=== PATIENT | female | born 1995 | race Caucasian/White ===

== ENCOUNTER 2018-05-19 23:58 | Inpatient (IN) ==
--- OUTSIDE RECORDS SUMMARY | 2018-05-20 00:02 | External Medical Summary | Continuity of Care Document ---
:1995 Author Organization [facility] Address [address] [place], [place] [address] Phone Allergies, Adverse Reactions, Alerts Substance Reaction Severity Status No Known Drug Allergies Unknown Active Medications Medication Instructions Dosage Effective Dates Status Comments (start - stop) 28 mg take 1 tablet by Not Available - Active iron-800 mcg oral route every tablet day Problems Condition Effective Dates (start - stop) Clinical Status Encntr for suprvsn of normal first - preg, third trimester Encounter For Screening For - Streptococcus B 36 weeks gestation of - Encntr screen for infections w sexl - mode of transmiss Encounter for screening for oth - infec/parastc diseases Encntr for suprvsn of normal first - preg, first trimester Encounter For Other Specified - Screening 10 weeks gestation of - 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) w/o abn findings Pap Smear Screening, Cervix Pap Smear Screening, Cervix Encounter for surveillance of contraceptive pills Encntr for suprvsn of normal first - preg, first trimester Encntr for suprvsn of normal first - preg, second trimester 19 weeks gestation of - Encntr for suprvsn of normal first - preg, second trimester 19 weeks gestation of - Encntr for suprvsn of normal first - preg, second trimester 24 weeks gestation of - Encntr for suprvsn of normal first - preg, second trimester 15 weeks gestation of - Encntr for suprvsn of normal first - preg, third trimester 35 weeks gestation of - Encntr for suprvsn of normal first - preg, third trimester 33 weeks gestation of - Encntr for suprvsn of normal first - preg, third trimester 38 weeks gestation of - Encntr for suprvsn of normal first - preg, third trimester 39 weeks gestation of - Encntr for suprvsn of normal first - preg, third trimester 37 weeks gestation of - Encntr for suprvsn of normal first - preg, third trimester 33 weeks gestation of - Encntr for suprvsn of normal first - preg, third trimester 28 weeks gestation of - Encntr for suprvsn of normal first - preg, third trimester 30 weeks gestation of - Migraines Active Procedures Procedure Date OB Visit No Charge Cult, pathgnc orgnsm, screen Results Test Name Date and Time Measure Units Reference Range Abnormal Flag Comments Panel Description: Strep Gp B Culture Strep Gp B Negative Negative Centers for Disease Control Culture 16:19:00 and Prevention (CDC) and [place] Congressof Obstetricians and Gynecologists (ACOG) guidelines for prevention ofperinatal group B streptococcal (GBS) disease specify co-collection ofa vaginal and rectal swab specimen to maximize sensitivity of GBSdetection. Per the CDC and ACOG, swabbing both the lower vagina andrectum substantially increases the yield of detection compared withsampling the vagina alone. .Penicillin G, ampicillin, or cefazolin are indicated for intrapartumprophylaxis of GBS colonization. Reflex susceptibilitytesting should be performed prior to use of clindamycin only on GBSisolates from penicillin-allergic women who are considered a high riskfor anaphylaxis. Treatment with vancomycin without additional testingis warranted if resistance to clindamycin is noted. Advance Directives Directive Yes / No Effective Date File Name Unknown Encounters Encounter Practice Location Reason(s) Diagnoses Date Provider Care Team Description For Visit Members Loretta Miner Encntr for Apr-1 Alfredo Referring In Womens suprvsn of normal 6-201 Natividad. Provider: Andre WADE, first preg, third 8 700 [address] [email or web address] weeks Medical [facility]sh, 700 1522, gestation of [facility], , [facility] [address] G[facility], 120, Memo 120, [id number], Kristofer Miner, [place]RE[place] GOMES, tel: [phone]. , [place]. tel: tel: [phone] Loretta Miner Encntr for Apr-0 Alfredo Referring In Womens suprvsn of normal 9-201 Natividad. Provider: Andre WADE, first preg, third 8 700 Krystal [address] Box [email or web address] weeks Medical Cash, 700 1522, gestation of [facility], , [facility] [address] GOMES, 120, Memo 120, , Kristofer Miner, [place]RE[place] GOMES, tel: [phone]. , [place]. tel: tel: [phone] Loretta Miner Encntr for Apr-0 Dietz Referring In Womens suprvsn of normal 2-201 Yvrose. Provider: Andre WADE, first preg, third 8 700 Krystal PO Box [email or web address] weeks Medical Cash, 700 1522, gestation of [facility], , [facility] [address] GOMES, 120, Memo 120, [id number], Kristofer Miner, [place]RE[place] GOMES, tel: [phone]. , [place]. tel: tel: [phone] Loretta Miner Encntr for Mar-2 Alfredo Referring In Womens suprvsn of normal 6-201 Natividad. Provider: Andre WADE, first preg, third 8 700 Krystal PO Box trimesterEncounte Medical Cash, 700 1522, r For [facility], Screening For , [facility] GOMES, Streptococcus B36 120, Memo 120, , weeks gestation Kristofer Miner, of [place], [place], tel: [phone]. , [place]. tel: tel: [phone] Loretta Miner Encntr for Fito-1 Alfredo Referring In Womens suprvsn of normal 9-201 Natividad. Provider: Health SHERI, first preg, third 8 700 Krystal PO Box [email or web address] weeks Medical Cash, 700 1522, gestation of [facility], , [facility] [address] [facility], 120, Memo 120, [id number], Kristofer Miner, [place]RE[place], [place], tel: [phone]. , [place]. tel: tel: [phone] Loretta Miner Encntr for Fito-0 Robert Referring In Womens suprvsn of normal 5-201 Filipe. 700 Provider: Andre WADE, first preg, third 8 Medical Krystal PO Box [facility], [facility], gestation of , [facility], 120, Upatoi Kristofer Vanegas, [facility] 120, , Kristofer GOMES, [id number] [place], tel: , [place]. [phone]. tel: tel: [phone] Loretta Miner Encntr for Fito-0 Alfredo Referring In Womens Ultrasound suprvsn of normal 5-201 Natividad. Provider: Health SHERI, first preg, third 8 700 Krystal PO Box weeks Medical Cash, 700 1522, gestation of [facility], , [facility] [address] [facility], 120, Memo 120, [id number], Kristofer Miner, MIREYA, [place], tel: [phone]. , [place]. tel: tel: [phone] Loretta Miner Encntr for Vinny-1 Alfredo Referring In Womens suprvsn of normal 4-201 Natividad. Provider: Health SHERI, first preg, third 8 700 Krystal PO Box [email or web address] weeks Medical Cash, 700 1522, gestation of [facility], , [facility] [address] [facility], 120, Memo 120, [id number], Kristofer Miner, [place], [place], tel: [phone]. , [place]. tel: tel: [phone] Loretta Miner Encntr for May-3 Alfredo Referring In Womens suprvsn of normal 1-201 Natividad. Provider: Andre WADE, first preg, third 8 700 [address] PO Box [email or web address] weeks Medical Cash, 700 1522, gestation of [facility], , [facility], 120, Memo 120, [id number], Kristofer Miner, [place], [place], tel: [phone]. , [place]. tel: tel: [phone] Loretta Miner Encntr for May-0 Alfredo Referring In Womens suprvsn of normal 3-201 Natividad. Provider: Andre WADE, first preg, 8 700 Krystal PO Box second Medical Cash, 700 1522, [email or web address] weeks [facility], gestation of , [facility] [address] [facility], 120, Memo 120, [id number], Kristofer Miner, [place], [place], tel: [phone]. , [place]. tel: tel: [phone] Loretta Miner Encntr for Mar-2 Alfredo Referring In Womens suprvsn of normal 9-201 Natividad. Provider: Andre WADE, first preg, 8 700 Krystal PO Box second Medical Cash, 700 1522, [email or web address] weeks [facility], gestation of , [facility] [address] [facility], 120, Memo 120, [id number], Kristofer Miner, [place], [place], tel: [phone]. , [place]. tel: tel: [phone] Loretta Miner Encntr for Mar-2 Alfredo Referring In Womens Ultrasound suprvsn of normal 9-201 Natividad. Provider: Andre WADE, first preg, 8 700 Krystal PO Box second Medical Cash, 700 1522, [email or web address] weeks [facility], gestation of , [facility], 120, Memo 120, , Kristofer Miner, [place]RE[place] GOMES, tel:[phone]. , [place]. tel: tel: [phone] Loretta Miner Encntr for Mar-0 Alfredo Referring In Womens suprvsn of normal 1-201 Natividad. Provider: Andre WADE, first preg, 8 700 Krystal PO Box second Medical Cash, 700 1522, [email or web address] weeks [facility], gestation of , [facility], 120, Memo 120, , Kristofer Miner, [place]RE[place] GOMES, tel:[phone]. , [place]. tel: tel: [phone] Loretta Knappntr for Pranav-2 Sobbing Referring In Womens suprvsn of normal 5-201 Aly. Provider: Andre WADE, first preg, first 8 700 Krystal PO Box trimester Medical Cash, 700 1522, [facility] [address] GOMES, [address], , Judy, Miner, MIREYA Miner, tel: MIREYA, [phone]. [id number], tel: [place]. [phone] tel: [phone] Loretta Miner Encntr screen for Pranav-2 Alfredo Referring In Womens infections w sexl 5-201 Natividad. Provider: Andre WADE, mode of 8 700 [address] PO Box transmissEncounte Medical Cash, 700 1522, r for screening [facility], for oth , [facility] [address] [facility], infec/parastc 120, Memo 120, , diseasesEncntr Kristofer Miner, for suprvsn of [place], [place], tel: normal first [phone]. preg, first , [place]. 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 Provider: Andre WADE, (routine) w/o abn 7 700 Krystal PO Box findingsPap Smear Medical Cash, 700 1522, Screening, [facility], CervixPap Smear , [facility] Dr GOMES, Screening, 120, Memo 120, [id number], CervixEncounter Kristofer Miner, for surveillance [place] GOMES, tel: of contraceptive [phone]. [id number] pills , [place]. tel: tel: [phone] Family History Family Member Diagnosis Age At Onset No family history of Uterine Cancer No family history of Breast Cancer No family history of Pulmonary Embolism Maternal Grandmother Multiple sclerosis No family history of Hypertension No family history of Colon Cancer No family history of Epilepsy No family history of Lung Disease No family history of Cardiovascular Disease No family history of Stroke Paternal Grandfather Sleep apnea No family history of Venous Thrombosis No family history of Thyroid Disorder No family history of Osteoporosis No family history of Ovarian Cancer No family history of Kidney Disease Paternal Grandfather Diabetes Immunizations Vaccine Date Status Comments Tdap completed Source: New Immunization Record Payers Payer name Insurance type Covered constitution party ID Authorization(s) [facility] [id number] [facility] [id number] Social History Type Description Quantity Date Captured Alcohol Use Details Caffeine Use Details Unknown Tobacco Use Status Unknown Smoking Status Never smoker Vital Signs Date / Height Weight BMI Pulse Blood Temperature Respiratory Body Head BMI Time: Rate Pressure Rate Surface Circumference percentile Area 152.10 21.7 lbs 0 mm[Hg] 3:16 kg/m PM eter (2) Chief Complaint And Reason For Visit Unknown Chief Complaint And Reason For Visit Reason For Referral Reason For Referral Unknown Plan Of Care Date Type Action Status Appointment Agatha Sánchez BOOKED Future Order: Radiology Order Complete OB Ultrasound > 14 Weeks Ordered ([id number]) Future Order: Radiology Order Ultrasound OB Follow-up ([id number]) Ordered Date Type Problem Goal Intervention Status Start Date Unknown. History Of Present Illness Encounter Date Complaint History Of Present Illness This patient has no known history of present illness Functional Status Encounter Date Functional Assessment Cognitive Assessment Unknown Medications Administered Medication Instructions Dosage Effective Dates (start - stop) Status Comments Drug Treatment Unknown Instructions Date Instruction Additional Information HIV and other routine tests risk factors identified by history anticipated course of care nutrition and weight gain counseling, special diet toxoplasmosis precautions (cats / raw meat) sexual activity exercise indications for ultrasound influenza vaccine environmental / work hazards travel use of any medications (including supplements, vitamins, herbs, OTC drugs) domestic violence seat belt use childbirth classes / hospital facilities hospital registration genetic testing new ob handbook
--- OUTSIDE RECORDS SUMMARY | 2018-05-20 00:02 | External Medical Summary | Continuity of Care Document ---
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 Provider: Andre WADE, first preg, third 8 700 K[address] PO Box [email or web address] weeks Medical Cash, 700 1522, gestation of [facility], , [facility] Dr GOMES, 120, Memo 120, [id number], Kristofer Miner, [place]RE[place] GOMES, tel: [phone]. [id number] , [place]. tel: tel: [phone] Loretta Miner Encntr for Alfredo Referring In Womens suprvsn of normal 9-201 Natividad. Provider: Ander WADE, first preg, third 8 700 [address] PO Box [email or web address] weeks Medical Cash, 700 1522, gestation of [facility], , [facility] Dr GOMES, 120, Memo 120, [id number], Kristofer Miner, [place]RE[place] GOMES, tel:[phone]. , [place]. tel: tel: [phone] Loretta Miner Encntr for Aug-0 Dietz Referring In Womens suprvsn of normal 2-201 Yvrose. Provider: Health PA, first preg, third 8 700 Krystal PO Box [email or web address] weeks Medical Cash, 700 1522, gestation of [facility], , [facility] Dr GOMES, 120, Memo 120, [id number], Kristofer Miner, [place]RE[place] GOMES, tel:[phone]. , [place]. tel: tel: [phone] Loretta Miner Encntr for Fito-2 Alfredo Referring In Womens suprvsn of normal 6-201 Natividad. Provider: Health SHERI, first preg, third 8 700 Krystal PO Box trimesterEncounte Medical Cash, 700 1522, r For [facility], Screening For Dr, [facility] Dr GOMES, Streptococcus B36 120, Memo 120, [id number], weeks gestation Kristofer Miner, [place] of [place] GOMES, tel: [phone]. , [place]. tel: tel: [phone] Loretta Miner Encntr for Fito-1 Alfredo Referring In Womens suprvsn of normal 9-201 Natividad. Provider: Health PA, first preg, third 8 700 Krystal PO Box [email or web address] weeks Medical Cash, 700 1522, gestation of [facility], , [facility] Dr GOMES, 120, Memo 120, [id number], Kristofer Miner, [place] GOMES, tel:[phone]. , [place]. tel: tel: [phone] Loretta Miner Encntr for Fito-0 Robert Referring In Womens suprvsn of normal 5-201 Filipe. 700 Provider: Health PA, first preg, third 8 Medical Krystal PO Box [email or web address] weeks Center Cash, 700 1522, gestation of [facility], 120, Center Dr GOMES, Kristofer, Memo 120, [id number], Kristofer GOMES, [id number] [place], tel:+ , [place]. [phone]. tel: tel: [phone] Loretta Miner Encntr for Mar-0 Alfredo Referring In Womens Ultrasound suprvsn of normal 5-201 Natividad. Provider: Health PA, first preg, third 8 700 Krystal PO Box [email or web address] weeks Medical Cash, 700 1522, gestation of [facility], , [facility] Dr GOMES, 120, Memo 120, [id number], Kristofer Miner, MIREYA GOMES, tel: [phone]. , [place]. tel: tel: [phone] Loretta Miner Encntr for Feb-1 Alfredo Referring In Womens suprvsn of normal 4-201 Natividad. Provider: Health SHERI, first preg, third 8 700 Krystal PO Box [email or web address] weeks Medical Cash, 700 1522, gestation of [facility], , [facility] Dr GOMES, 120, Memo 120, [id number], Kristofer Miner, MIRE[place] GOMES, tel: [phone]. , [place]. tel: tel: [phone] Loretta Miner Encntr for January-3 Alfredo Referring In Womens suprvsn of normal 1-201 Natividad. Provider: Health PA, first preg, third 8 700 Rkystal PO Box [email or web address] weeks Medical Cash, 700 1522, gestation of [facility], , [facility] Dr GOMES, 120, Memo 120, [id number], Kristofer Miner, MIREYA GOMES, tel: [phone]. , [place]. tel: tel: [phone] Miner Encntr for May-0 Alfredo Referring In Womens suprvsn of normal 3-201 Natividad. Provider: Andre WADE, first preg, 8 700 Krystal PO Box second Medical Cash, 700 1522, weeks [facility], gestation of , [facility] Dr GOMES, 120, Memo 120, [id number], Kristofer Miner, [place], [place], tel:[phone]. , [place]. tel: tel: [phone] Loretta Miner Encntr for Mar-2 Alfredo Referring In Womens suprvsn of normal 9-201 Natividad. Provider: Andre WADE, first preg, 8 700 Krystal PO Box second Medical Cash, 700 1522, [email or web address] weeks [facility], gestation of Dr [facility] Dr GOMES, 120, Memo 120, , Kristofer Miner, MIRE[place], [place], tel:[phone]. , [place]. tel: tel: [phone] Loretta Miner Encntr for Mar-2 Alfredo Referring In Womens Ultrasound suprvsn of normal 9-201 Natividad. Provider: Andre WADE, first preg, 8 700 Krystal PO Box second Medical Cash, 700 1522, weeks [facility], gestation of Dr [facility] Dr GOMES, 120, Memo 120, , Kristofer Miner, MIRE[place], MIRE[place], tel: [phone]. , [place]. tel: tel: [phone] Loretta Miner Encntr for Mar-0 Alfredo Referring In Womens suprvsn of normal 1-201 Natividad. Provider: Andre WADE, first preg, 8 700 Krystal PO Box second Medical Cash, 700 1522, [email or web address] [facility] , [facility] Dr GOMES, 120, Memo 120, , Kristofer Miner, MIREYA GOMES, tel:[phone]. , [place]. tel: tel: [phone] Loretta Miner Encntr for Sep- Sobbing Referring In Womens suprvsn of normal 5-201 Aly. Provider: Andre WADE, first preg, first 8 700 Krystal PO Box trimester Medical Cash, 700 1522, [facility], [facility] [place] [address] GOMES, [address], [id number], 120, Miner, MIREYA Miner, tel: MIREYA, [phone]. [id number], tel: [place]. 880[address] tel: [phone] Loretta Miner Encntr screen for Sep-2 Alfredo Referring In Womens infections w sexl 5-201 Natividad. Provider: Andre WADE, mode of 8 700 Krystal PO Box transmissEncounte Medical Cash, 700 1522, r for screening [facility], for oth , [facility] Dr GOMES, infec/parastc 120, Memo 120, , diseasesEncntr Kristofer Miner, for suprvsn of [place], tel: normal first [phone]. preg, first , [place]. 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 Provider: Andre WADE, (routine) w/o abn 7 700 Krystal PO Box findingsPap Smear Medical Cash, 700 1522, Screening, [facility], CervixPap Smear , [facility] Dr GOMES, Screening, 120, Memo 120, , CervixEncounter Kristofer Miner, for surveillance [place], [place], tel: of contraceptive [phone]. pills , [place]. tel: tel: [phone] Family History Family Member Diagnosis Age At [...] Record Payers Payer name Insurance type Covered republican ID Authorization(s) [facility] [id number] [facility] [id number] Social History Type Description Quantity Date Captured Alcohol Use Details Caffeine Use Details Unknown Tobacco Use Status Unknown Smoking Status Never smoker Vital Signs Date / Height Weight BMI Pulse Blood Temperature Respiratory Body Head BMI Time: Rate Pressure Rate Surface Circumference percentile Area 151.80 21.6 109/64 -2018 lbs 6 mm[Hg] 9:22 kg/m AM eter (2) Chief Complaint And Reason For Visit Unknown Chief Complaint And Reason For Visit Reason For Referral Reason For Referral Unknown Plan Of Care Date Type Action Status Appointment Agatha Sánchez BOOKED Future Order: Radiology Order Complete OB Ultrasound > 14 Weeks Ordered ([id number]) Future Order: Radiology Order Ultrasound OB Follow-up ([id number]) Ordered Date Type Problem Goal Intervention Status [...]
--- OUTSIDE RECORDS SUMMARY | 2018-05-20 00:02 | External Medical Summary | Continuity of Care Document ---
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 Provider: Andre WADE, first preg, third 8 700 Krystal PO Box [email or web address] weeks Medical Cash, 700 1522, gestation of [facility], , [facility] Dr GOMES, 120, Memo 120, [id number], Kristofer Miner, MIRE[place], [place], tel:[phone]. [id number] , [place]. tel: tel: [phone] Loretta Grossr for Apr- Dietz Referring In Womens suprvsn of normal 2-201 Yvrose. Provider: Andre WADE, first preg, third 8 700 Krystal PO Box [id number] weeks Medical Cash, 700 1522, gestation of [facility], , [facility] Dr GOMES, 120, Memo 120, [id number], Kristofer Miner, [place]RE[place] GOMES, tel: [phone]. , [place]. tel: tel: [phone] Loretta Mienr Encntr for Fito-2 Alfredo Referring In Womens suprvsn of normal 6-201 Natividad. Provider: Health SHERI, first preg, third 8 700 Krystal PO Box trimesterEncounte [facility] Cash, 700 1522, r For [facility], Screening For Dr, [facility] Dr GOMES, Streptococcus B36 120, Memo 120, [id number], weeks gestation Kristofer Miner, [place] of [place], [place], tel: [phone]. , [place]. tel: tel: [phone] Loretta Miner Encntr for Fito-1 Alfredo Referring In Womens suprvsn of normal 9-201 Natividad. Provider: Health SHERI, first preg, third 8 700 Krystal PO Box [email or web address] weeks [facility] Cash, 700 1522, gestation of [facility], , [facility] Dr GOMES, 120, Memo 120, [id number], Kristofer Miner, [place] GOMES, tel: [phone]. , [place]. tel: tel: [phone] Loretta Miner Encntr for Fito-0 Robert Referring In Womens suprvsn of normal 5-201 Filipe. 700 Provider: Health PA, first preg, third 8 Medical Krystal PO Box weeks Lavinia Cash, 700 1522, gestation of Dr [facility], 120, [address] Dr GOMES, Kristofer, Memo 120, , Kristofer GOMES, [id number] [place], tel: , [place]. [phone]. tel: tel: [phone] Loretta Miner Encntr for Fito-0 Alfredo Referring In Womens Ultrasound suprvsn of normal 5-201 Natividad. Provider: Health PA, first preg, third 8 700 Krystal PO Box [id number] weeks Medical Cash, 700 1522, gestation of [facility], , [facility] Dr GOMES, 120, Memo 120, [id number], Kristofer Miner, [place], [place], tel:+ [phone]. , [place]. tel: tel: [phone] Loretta Miner Encntr for Vinny-1 Alfredo Referring In Womens suprvsn of normal 4-201 Natividad. Provider: Health PA, first preg, third 8 700 Krystal PO Box [email or web address] weeks Medical Cash, 700 1522, gestation of [facility], , [facility] Dr GOMES, 120, Memo 120, [id number], Kristofer Miner, [place], [place], tel: [phone]. , [place]. tel: tel: [phone] Loretta Miner Encntr for May-3 Alfredo Referring In Womens suprvsn of normal 1-201 Natividad. Provider: Health PA, first preg, third 8 700 Krystal PO Box [email or web address] weeks Medical Cash, 700 1522, gestation of [facility], , [facility] Dr GOMES, 120, Memo 120, [id number], Kristofer Miner, [place], [place], tel: [phone]. , [place]. tel: tel: [phone] Loretta Miner Encntr for May-0 Alfredo Referring In Womens suprvsn of normal 3-201 Natividad. Provider: Health PA, first preg, 8 700 Krystal PO Box second Medical Cash, 700 1522, weeks [facility], gestation of , [facility] Dr GOMES, 120, Memo 120, , Kristofer Miner, MIRE[place], [place], tel: [phone]. , [place]. tel: tel: [phone] Loretta Miner Encntr for Mar-2 Alfredo Referring In Womens suprvsn of normal 9-201 Natividad. Provider: Andre WADE, first preg, 8 700 Krystal PO Box second Medical Cash, 700 1522, [email or web address] weeks [facility], gestation of , [facility] Dr GOMES, 120, Memo 120, [id number], Kristofer Miner, [place]RE[place], [place], tel: [phone]. , [place]. tel: tel: [phone] Loretta Miner Encntr for Mar-2 Alfredo Referring In Womens Ultrasound suprvsn of normal 9-201 Natividad. Provider: Andre WADE, first preg, 8 700 Krystal PO Box second Medical Cash, 700 1522, [id number] weeks [facility], gestation of Dr, [facility] Dr GOMES, 120, Memo 120, , Kristofer Miner, [place]RE[place] GOMES, tel: [phone]. , [place]. tel: tel: [phone] Loretta Miner Encntr for Mar-0 Alfredo Referring In Womens suprvsn of normal 1-201 Natividad. Provider: Andre WADE, first preg, 8 700 Krystal PO Box second Medical Cash, 700 1522, [email or web address] weeks [facility], gestation of Dr, [facility] Dr GOMES, 120, Memo 120, , Kristofer Miner, [place] GOMES, tel: [phone]. , [place]. tel: tel: [phone] Loretta Miner Encntr for Pranav-2 Sobbing Referring In Womens suprvsn of normal 5-201 Aly. Provider: Andre WADE, first preg, first 8 700 Krystal PO Box trimester Medical Cash, 700 1522, [facility], [facility] Dr GOMES, [address], [id number], Judy, Miner, [place] Miner, tel: [place], [id number]. [address], tel:+ [place]. [phone] tel: [phone] Loretta Miner Encntr screen for Sep- Alfredo Referring In Womens infections w sexl 5-201 Natividad. Provider: Andre WADE, mode of 8 700 Krystal PO Box transmissEncounte Medical Cash, 700 1522, r for screening Center [facility], for oth , [facility] Dr GOMES, infec/parastc 120, Memo 120, [id number], diseasesEncntr Kristofer Miner, for suprvsn of [place], [place], tel: normal first [phone]. preg, first , [place]. 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 Provider: Andre WADE, (routine) w/o abn 7 700 Krystal PO Box findingsPap Smear Medical Cash, 700 1522, Screening, [facility], CervixPap Smear , [facility] Dr GOMES, Screening, 120, Memo 120, , CervixEncounter Kristofer Miner, for surveillance [place], tel: of contraceptive [phone]. pills , [place]. tel: tel: [phone] Family History Family Member Diagnosis Age At [...] name Insurance type Covered republican ID Authorization(s) [facility] [id number] [facility] [id number] Social History Type Description Quantity Date Captured Alcohol Use Details Caffeine Use Details Unknown Tobacco Use Status Unknown Smoking Status Never smoker Vital Signs Date / Height Weight BMI Pulse Blood Temperature Respiratory Body Head BMI Time: Rate Pressure Rate Surface Circumference percentile Area 153.40 21.8 105/ lbs 8 mm[Hg] 3:38 kg/m PM eter (2) Chief Complaint And Reason For Visit Unknown Chief Complaint And Reason For Visit Reason For Referral Reason For Referral Unknown Plan Of Care Date Type Action Status Appointment Agatha Sánchez BOOKED Appointment Agatha Sánchez BOOKED Future Order: Radiology Order Complete OB Ultrasound > 14 Weeks Ordered ([id number]) Future Order: Radiology Order Ultrasound OB Follow-up ([id number]) Ordered Date Type Problem Goal Intervention Status [...]
--- OUTSIDE RECORDS SUMMARY | 2018-05-20 00:03 | External Medical Summary | Continuity of Care Document ---
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) w/o abn findings Pap Smear Screening, Cervix Pap Smear Screening, Cervix Encounter for surveillance of contraceptive pills Encntr for suprvsn of normal first - preg, first trimester Encntr for suprvsn of normal first - preg, second trimester 19 weeks gestation of - Encntr for suprvsn of normal first - preg, second trimester 15 weeks gestation of - Migraines Active Procedures Procedure Date OB Visit No Charge Results Test Name Date and Time Measure Units Reference Range Abnormal Flag Comments Unknown Advance Directives Directive Yes / No Effective Date File Name Unknown Encounters Encounter Practice Location Reason(s) Diagnoses Date Provider Care Team Description For Visit Members Loretta Miner Encntr for Mar-2 Alfredo Referring In Womens suprvsn of normal 9-201 Natividad. Provider: Andre WADE, first preg, 8 700 Krystal PO Box second Medical Cash, 700 1522, [email or web address] weeks [facility], gestation of , [facility] Dr GOMES, 120, Memo 120, [id number], Kristofer Miner, [place], [place], tel:[phone]. , [place]. tel: tel: [phone] Loretta Miner Encntr for Mar-2 Alfredo Referring In Womens Ultrasound suprvsn of normal 9-201 Natividad. Provider: Andre WADE, first preg, 8 700 Krystal PO Box second Medical Cash, 700 1522, [email or web address] weeks [facility], gestation of Dr, [facility] Dr GOMES, 120, Memo 120, , Kristofer Miner, [place]RE[place] GOMES, tel:+ [phone]. , [place]. tel: tel: [phone] Loretta Miner Encntr for Mar-0 Alfredo Referring In Womens suprvsn of normal 1-201 Natividad. Provider: Andre WADE, first preg, 8 700 Krystal PO Box second Medical Cash, 700 1522, [email or web address] weeks [facility], gestation of Dr, [facility] Dr GOMES, 120, Memo 120, , Kristofer Miner, MIREYA, [place], tel: [phone]. , [place]. tel: tel: [phone] Loretta Miner Encntr for Pranav-2 Sobbing Referring In Womens suprvsn of normal 5-201 Aly. Provider: Andre WADE, first preg, first 8 700 Krystal PO Box trimester Medical Cash, 700 1522, [facility], [facility] Dr GOMES, [address], [id number], Judy, Miner, MIREYA Miner, tel: MIREYA, [phone]. [address], tel:+ [place]. [phone] tel: [phone] Loretta Grossr screen for Sep- Alfredo Referring In Womens infections w sexl 5-201 Natividad. Provider: Health SHERI, mode of 8 700 Krystal PO Box transmissEncounte Medical Cash, 700 1522, r for screening Center [facility], for oth , [facility] Dr GOMES, infec/parastc 120, Memo 120, [id number], diseasesEncntr Kristofer Miner, for suprvsn of [place], tel: normal first [phone]. preg, first , [place]. tel: trimesterEncounte tel: [phone] r For Other [id number] Specified [id number] weeks gestation of Loretta Gillette for home care attendant Cash Referring In Womens exam (general) 3-201 Krystal. Provider: Andre WADE, (routine) w/o abn 7 700 Krystal PO Box findingsPap Smear Medical Cash, 700 1522, Screening, [facility], CervixPap Smear , [facility] Dr GOMES, Screening, 120, Memo 120, [id number], CervixEncounter Kristofer Miner, for surveillance [place], tel: of contraceptive [phone]. pills , [place]. tel: tel: [phone] Family History Family Member Diagnosis Age At [...] Grandfather Diabetes Immunizations Vaccine Date Status Comments Unknown Payers Payer name Insurance type Covered green party ID Authorization(s) [employer] [id number] Social History Type Description Quantity Date Captured Alcohol Use Details Caffeine Use Details Unknown Tobacco Use Status Unknown Smoking Status Never smoker Vital Signs Date / Height Weight BMI Pulse Blood Temperature Respiratory Body Head BMI Time: Rate Pressure Rate Surface Circumference percentile Area 18.6 -2017 6 4:07 kg/m PM eter (2) 136.10 19.4 111/67 -2018 lbs 1 mm[Hg] 4:29 kg/m PM eter (2) Chief Complaint And Reason For Visit Unknown Chief Complaint And Reason For Visit Reason For Referral Reason For Referral Unknown Plan Of Care Date Type Action Status Appointment Mu Sánchez BOOKED Future Order: Radiology Order Complete OB Ultrasound > 14 Weeks Ordered ([id number]) Date Type Problem Goal Intervention Status Start [...]
--- OUTSIDE RECORDS SUMMARY | 2018-05-20 00:03 | External Medical Summary | Continuity of Care Document ---
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 Provider: Andre WADE, first preg, 8 700 Krystal PO Box second Medical Cash, 700 1522, weeks [facility], gestation of , [facility] Dr GOMES, 120, Memo 120, [id number], Kristofer Miner, MIREYA, [place], tel: [phone]. , [place]. tel: tel: [phone] Loretta Miner Encntr for Mar-2 Alfredo Referring In Womens Ultrasound suprvsn of normal 9-201 Natividad. Provider: Andre WADE, first preg, 8 700 Krystal PO Box second Medical Cash, 700 1522, [email or web address] weeks [facility], gestation of Dr, [facility] Dr GOMES, 120, Memo 120, , Kristofer Miner, MIREYA GOMES, tel: [phone]. , [place]. tel: tel: [phone] Loretta Miner Encntr for Mar-0 Alfredo Referring In Womens suprvsn of normal 1-201 Natividad. Provider: Andre WADE, first preg, 8 700 Krystal PO Box second Medical Cash, 700 1522, [email or web address] weeks [facility], gestation of , [facility] Dr GOMES, 120, Memo 120, , Kristofer Miner, MIREYA GOMES, tel: [phone]. , [place]. tel: tel: [phone] Loretta Miner Encntr for Pranav-2 Sobbing Referring In Womens suprvsn of normal 5-201 Aly. Provider: Andre WADE, first preg, first 8 700 Krystal PO Box trimester Medical Cash, 700 1522, [facility], [facility] Dr GOMES, [address], [id number], Judy, Miner, MIREYA Miner, tel: MIREYA, [id number]. [address], tel:+ [place]. [phone] tel: [phone] Loretta Miner Enchildar screen for Sep- Alfredo Referring In Womens infections w sexl 5-201 Natividad. Provider: Andre WADE, mode of 8 700 Krystal PO Box transmissEncounte Medical Cash, 700 1522, r for screening Center [facility], for oth , [facility] Dr GOMES, infec/parastc 120, Memo 120, [id number], diseasesEncntr Kristofer Miner, for suprvsn of [place], [place], tel: normal first [phone]. preg, first , [place]. 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 Provider: Andre WADE, (routine) w/o abn 7 700 Krystal PO Box findingsPap Smear Medical Cash, 700 1522, Screening, [facility], CervixPap Smear , [facility] Dr GOMES, Screening, 120, Memo 120, , CervixEncounter Kristofer Miner, for surveillance [place], [place], tel: of contraceptive [phone]. pills , [place]. tel: tel: [phone] Family History Family Member Diagnosis Age At [...] Unknown Payers Payer name Insurance type Covered libertarian ID Authorization(s) [employer] [id number] Social History Type Description Quantity Date Captured Unknown Vital Signs Date / Height Weight BMI Pulse Blood Temperature Respiratory Body Head BMI Time: Rate Pressure Rate Surface Circumference percentile Area Unknown Chief Complaint And Reason For Visit Unknown Chief Complaint And Reason For Visit Reason For Referral Reason For Referral Unknown Plan Of Care Date Type Action Status Appointment Mu Sánchez BOOKED Future Order: Radiology Order Complete OB Ultrasound > 14 Weeks Ordered ([id number]) Date Type Problem Goal Intervention Status Start [...]
--- OUTSIDE RECORDS SUMMARY | 2018-05-20 00:03 | External Medical Summary | Continuity of Care Document ---
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 Provider: Andre WADE, first preg, third 8 700 Krystal PO Box [email or web address] weeks [facility] Cash, 700 1522, gestation of [facility], Dr, [facility] Dr GOMES, [facility], [facility] 120, [id number], Kristofer Miner, MIREYA, [place], tel: [phone]. , . tel: tel: [phone] Loretta Miner Encntr for Mar-0 Robert Referring In Womens suprvsn of normal 5-201 Filipe. 700 Provider: Andre WADE, first preg, third 8 Medical Krystal PO Box [email or web address] weeks [place] Cash, 700 1522, gestation of Memo Bryant [facility] [place], [facility] 120, [place] Kristofer Vanegas, [facility] 120, [id number], [place], Miner, [id number] [place], tel: , . [phone]. tel: tel: [phone] Loretta Miner Encntr for Mar-0 Alfredo Referring In Womens Ultrasound suprvsn of normal 5-201 Natividad. Provider: Andre WADE, first preg, third 8 700 Krystal PO Box [id number] weeks [facility] Cash, 700 1522, gestation of [facility], , [facility] Dr GOMES, 120, Memo 120, [id number], Kristofer Miner, [place], [place], tel: [phone]. , [place]. tel: tel: [phone] Associates Kristofer Encntr for Vinny-1 Alfredo Referring In Womens suprvsn of normal 4-201 Natividad. Provider: Andre WADE, first preg, third 8 700 Krystal PO Box [email or web address] weeks Medical Cash, 700 1522, gestation of [facility], , [facility] Dr GOMES, 120, Memo 120, [id number], Kristofer Miner, [place], [place], tel:[phone]. , [place]. tel: tel: [phone] Associates Kristofer Encntr for May-3 Alfredo Referring In Womens suprvsn of normal 1-201 Natividad. Provider: Andre WADE, first preg, third 8 700 Krystal PO Box weeks Medical Cash, 700 1522, gestation of [facility], , [facility] Dr GOMES, 120, Memo 120, [id number], Kristofer Minre, [place], [place], tel: [phone]. , [place]. tel: tel: [phone] Loretta Miner Encntr for May-0 Alfredo Referring In Womens suprvsn of normal 3-201 Natividad. Provider: Andre WADE, first preg, 8 700 Krystal PO Box second Medical Cash, 700 1522, [email or web address] weeks [facility], gestation of , [facility] Dr GOMES, 120, Memo 120, [id number], Kristofer Miner, [place], [place], tel: [phone]. , [place]. tel: tel: [phone] Loretta Miner Encntr for Mar-2 Alfredo Referring In Womens suprvsn of normal 9-201 Natividad. Provider: Andre WADE, first preg, 8 700 Krystal PO Box second Medical Cash, 700 1522, [email or web address] weeks [facility], [facility] of , [facility] Dr GOMES, 120, Memo 120, , Kristofer Miner, MIREYA GOMES, tel:+ [phone]. , [place]. tel: tel: [phone] Loretta Knappntr for Mar-2 Alfredo Referring In Womens Ultrasound suprvsn of normal 9-201 Natividad. Provider: Andre WADE, first preg, 8 700 Krystal PO Box second Medical Cash, 700 1522, [id number] weeks [facility], gestation of , [facility] Dr GOMES, 120, Memo 120, , Kristofer Miner, MIREYA GOMES, tel:+ [phone]. , [place]. tel: tel: [phone] Loretta Miner Encntr for Mar-0 Alfredo Referring In Womens suprvsn of normal 1-201 Natividad. Provider: Andre WADE, first preg, 8 700 Krystal PO Box second Medical Cash, 700 1522, [id number] weeks [facility], gestation of , [facility] Dr GOMES, 120, Memo 120, , Kristofer Miner, MIREYA GOMES, tel:+ [phone]. , [place]. tel: tel: [phone] Loretta Miner Encntr for Pranav-2 Sobbing Referring In Womens suprvsn of normal 5-201 Aly. Provider: Andre WADE, first preg, first 8 700 Krystal PO Box trimester Medical Cash, 700 1522, [facility], [facility], [place] Dr GOMES, [address], , Kristofer Kim, MIREYA Miner, tel: MIREYA, [id number]. [address], tel:+ [place]. [phone] tel: [phone] Loretta Knappntr screen for Pranav-2 Alfredo Referring In Womens infections w sexl 5-201 Natividad. Provider: Andre WADE, mode of 8 700 Krystal PO Box transmissEncounte Medical Cash, 700 1522, r for screening Center [facility] [place], for oth , [facility] Dr GOMES, infec/parastc 120, Memo 120, [id number], diseasesEncntr Kristofer Miner, for suprvsn of [place], [place], tel:2 normal first [phone]. preg, first , [place]. 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 Provider: Andre WADE, (routine) w/o abn 7 700 Krystal PO Box findingsPap Smear Medical Cash, 700 1522, Screening, [facility], CervixPap Smear , [facility] Dr GOMES, Screening, 120, Memo 120, , CervixEncounter Kristofer Miner, for surveillance [place], [place], tel: of contraceptive [phone]. pills , [place]. tel: tel: [phone] Family History Family Member Diagnosis Age At [...] Insurance type Covered constitution party ID Authorization(s) [facility] [id number] [facility] [id number] Social History Type Description Quantity Date Captured Alcohol Use Details Caffeine Use Details Unknown Tobacco Use Status Unknown Smoking Status Never smoker Vital Signs Date / Height Weight BMI Pulse Blood Temperature Respiratory Body Head BMI Time: Rate Pressure Rate Surface Circumference percentile Area 149.10 21.2 107/2018 lbs 7 mm[Hg] 2:52 kg/m PM eter (2) Chief Complaint And Reason For Visit Unknown Chief Complaint And Reason For Visit Reason For Referral Reason For Referral Unknown Plan Of Care Date Type Action Status Appointment Agatha Sánchez BOOKED Future Order: Radiology Order Complete OB Ultrasound > 14 Weeks Ordered ([id number]) Future Order: Radiology Order Ultrasound OB Follow-up ([id number]) Ordered Date Type Problem Goal Intervention Status [...]
--- OUTSIDE RECORDS SUMMARY | 2018-05-20 00:03 | External Medical Summary | Continuity of Care Document ---
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 700 Provider: Andre WADE, first preg, third 8 Medical Krystal [address] [email or web address] weeks [facility], 700 1522, gestation of [facility] [place], 120, [place] [address] GOMES, Kristofer, [facility] 120, [id number], Kristofer GOMES, [id number] [place], tel: , . [phone]. tel: tel: [phone] Loretta Miner Encntr for Mar- Alfredo Referring In Womens Ultrasound suprvsn of normal 5-201 Natividad. Provider: Andre WADE, first preg, third 8 700 Krystal PO Box [id number] weeks [facility] Cash, 700 1522, gestation of [facility] [place], Dr [facility] Dr GOMES, 120, Memo 120, [id number], Kristofer Miner, [place] GOMES, tel: [phone]. [id number] , [place]. tel: tel: [phone] Loretta Miner Encntr for Alfredo Referring In Womens suprvsn of normal 4-201 Natividad. Provider: Andre WADE, first preg, third 8 700 Krystal PO Box [id number] weeks Medical Cash, 700 1522, gestation of [facility], , [facility] Dr GOMES, 120, Memo 120, [id number], Kristofer Miner, [place], [place], tel: [phone]. , [place]. tel: tel: [phone] Loretta Miner Encntr for May-3 Alfredo Referring In Womens suprvsn of normal 1-201 Natividad. Provider: Andre WADE, first preg, third 8 700 Krystal PO Box [id number] weeks Medical Cash, 700 1522, gestation of [facility] [place], , [facility] Dr GOMES, 120, Memo 120, [id number], Kristofer Miner, [place], [place], tel: [phone]. , [place]. tel: tel: [phone] Loretta Miner Encntr for May-0 Alfredo Referring In Womens suprvsn of normal 3-201 Natividad. Provider: Andre WADE, first preg, 8 700 Krystal PO Box second Medical Cash, 700 1522, [email or web address] [facility] of , [facility] Dr GOMES, 120, Memo 120, , Kristofer iMner, [place], [place], tel: [phone]. , [place]. tel: tel: [phone] Loretta Miner Encntr for Mar-2 Alfredo Referring In Womens suprvsn of normal 9-201 Natividad. Provider: Andre WADE, first preg, 8 700 Krystal PO Box second Medical Cash, 700 1522, [email or web address] weeks [facility] [place], gestation of Dr [facility] Dr GOMES, 120, Memo 120, , Kristofer Miner, [place], [place], tel: [phone]. , [place]. tel: tel: [phone] Miner Encntr for Mar-2 Alfredo Referring In Womens Ultrasound suprvsn of normal 9-201 Natividad. Provider: Andre WADE, first preg, 8 700 Krystal PO Box second Medical Cash, 700 1522, [id number] [facility], [facility] of , [facility] Dr GOMES, 120, Memo 120, , Kristofer Miner, [place] GOMES, tel:[phone]. , [place]. tel: tel: [phone] Loretta Miner Encntr for Mar-0 Alfredo Referring In Womens suprvsn of normal 1-201 Natividad. Provider: Andre WADE, first preg, 8 700 Krystal PO Box second Medical Cash, 700 1522, [email or web address] weeks [facility], gestation of Dr, [facility] Dr GOMES, 120, Memo 120, , Kristofer Miner, [place], [place], tel:[phone]. , [place]. tel: tel: [phone] Loretta Knappntr for Sep- Sobbing Referring In Womens suprvsn of normal 5-201 Aly. Provider: Andre WADE, first preg, first 8 700 Krystal PO Box trimester Medical Cash, 700 1522, [facility] Dr GOMES, [address], , 120, Miner, [place] Miner, tel: [place], [phone]. [address], tel: [place]. [phone] tel: [phone] Loretta Knappntr screen for Pranav-2 Alfredo Referring In Womens infections w sexl 5-201 Natividad. Provider: Andre WADE, mode of 8 700 Krystal PO Box transmissEncounte Medical Cash, 700 1522, r for screening [facility], for oth , [facility] Dr GOMES, infec/parastc 120, Memo 120, , diseasesEncntr Kristofer Miner, for suprvsn of [place], [place], tel: normal first [phone]. preg, first , [place]. 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 Provider: Health SHERI, (routine) w/o abn 7 700 Krystal PO Box findingsPap Smear [facility] Cash, 700 1522, Screening, [facility] [place], CervixPap Smear , Memo Center Dr GOMES, Screening, 120, Memo 120, [id number], CervixEncounter Miner, [place], for surveillance [place] GOMES, tel: of contraceptive [phone]. [id number] pills , [place]. tel: tel: [phone] Family History Family Member Diagnosis Age At [...] Unknown Payers Payer name Insurance type Covered democrat ID Authorization(s) [facility] [id number] Social History Type Description Quantity Date Captured Alcohol Use Details Caffeine Use Details Unknown Tobacco Use Status Unknown Smoking Status Never smoker Vital Signs Date / Height Weight BMI Pulse Blood Temperature Respiratory Body Head BMI Time: Rate Pressure Rate Surface Circumference percentile Area 146.20 20.8 102/64 -2018 lbs 6 mm[Hg] 4:33 kg/m PM eter (2) Chief Complaint And Reason For Visit Unknown Chief Complaint And Reason For Visit Reason For Referral Reason For Referral Unknown Plan Of Care Date Type Action Status Appointment Agatha Sánchez BOOKED Future Order: Radiology Order Complete OB Ultrasound > 14 Weeks Ordered ([id number]) Future Order: Radiology Order Ultrasound OB Follow-up ([id number]) Ordered Date Type Problem Goal Intervention Status [...]
--- OUTSIDE RECORDS SUMMARY | 2018-05-20 00:03 | External Medical Summary | Continuity of Care Document ---
:1993 Author Organization [facility] Allergies Active Description Code Type Severity Reaction Onset Reported/ Identified Relationship Clinical to Patient Status Yes No Known 46617 3 N/A N/A Drug 0 Allergies Yes No Known Aller Unknown N/A 04/23/2018 Allergies gy Medications Medication Packaging Start Date Stop Date Route Dosage Sig Package 10/14/2016 10/15/2017 SPRINTEC take 1 tablet by oral route every day 04/23/2018 PO 1 each Prenatabs FA DAILY Tablet Problems Date Dx Coded Attending Type Code Diagnosis Diagnosed By 10/16/2017 Aly Ortiz Z34.01 Encntr for L suprvsn of normal first preg, first trimester 12/18/2017 Natividad Fuentes W Z34.02 Encntr for suprvsn of normal first preg, second trimester 12/18/2017 Natividad Fuentes Z3A.19 19 weeks gestation of 03/26/2018 Natividad Fuentes Z34.03 Encntr for suprvsn of normal first preg, third trimester 03/26/2018 Natividad Fuentes W Z3A.33 33 weeks gestation of 04/09/2018 Natividad Fuentes Z34.03 Encntr for suprvsn of normal first preg, third trimester 04/09/2018 Natividad Fuentes Z3A.35 35 weeks gestation of 04/13/2018 Natividad Fuentes W Z34.03 Encntr for suprvsn of normal first preg, third trimester 04/13/2018 Natividad Fuentes Z3A.35 35 weeks gestation of Procedures Code Description [place] [address] OB US < 14 10/16/2017 WKS, SINGLE FETUS 10525 Ultrasnd 12/18/2017 exam of preg uterus, compl 51964 Ultrasnd 03/26/2018 preg uterus, flwup/repeat 46718 OB Visit No 04/09/2018 Charge 78596 Immuniz 04/09/2018 admnin, 1 vac, sngl/combo 61236 TDAP VACCINE 04/09/2018 >7 IM Results There is no data. Encounters ACCT No. Visit Discharge Status Pt. Type Provider Facility Loc./Unit Complaint Date/Time [id number] 05/14/2018 05/14/2018 [facility] Outpatient Alfredo, 14:40:00 23:59:59 Natividad L [id number] 05/07/2018 05/07/2018 CLS Outpatient Alfredo, 14:40:00 23:59:59 Natividad L [id number] 04/30/2018 04/30/2018 CLS Outpatient Alfredo, 14:00:00 23:59:59 Natividad L [id number] 04/23/2018 04/23/2018 CLS Outpatient Dietz, 09:20:00 23:59:59 Yvrose Lugo [id number] 04/16/2018 04/16/2018 [facility] Outpatient Alfredo, 14:55:00 23:59:59 Natividad L [id number] 04/09/2018 04/09/2018 [facility] Outpatient Alfredo, 15:15:00 23:59:59 Natividad L [id number] 03/26/2018 03/26/2018 [facility] Outpatient Robert, 14:50:00 23:59:59 Filipe R [id number] 03/26/2018 03/26/2018 [facility] Outpatient Alfredo, 14:15:00 23:59:59 Natividad L [id number] 03/05/2018 03/05/2018 [facility] Outpatient Alfredo, 16:15:00 23:59:59 Natividad L [id number] 02/19/2018 02/19/2018 CLS Outpatient Alfredo, 16:00:00 23:59:59 Natividad L [id number] 01/22/2018 01/22/2018 CLS Outpatient Alfredo, 15:30:00 23:59:59 Natividad L [id number] 12/18/2017 12/18/2017 [facility] Outpatient Alfredo, 15:55:00 23:59:59 Natividad L [id number] 12/18/2017 12/18/2017 CLS Outpatient Alfredo, 15:15:00 23:59:59 Natividad L [id number] 11/20/2017 11/20/2017 CLS Outpatient Alfredo, 13:30:00 23:59:59 Natividad L [id number] 10/16/2017 10/16/2017 CLS Outpatient Sobbing, 14:16:00 23:59:59 Aly L [id number] 10/16/2017 10/16/2017 CLS Outpatient Alfredo, 13:15:00 23:59:59 Natividad L [id number] 10/14/2016 10/14/2016 CLS Outpatient Cash, 16:00:00 23:59:59 Krystal [id number] 10/14/2016 10/14/2016 CLS Outpatient Cash, 08:30:00 23:59:59 Krystal [id number] 10/08/2016 10/08/2016 CLS Outpatient Dietz, 08:11:00 23:59:59 Yvrose Lugo [id number] 04/23/2018 Document [id number] 10:19:00 Registration
--- OUTSIDE RECORDS SUMMARY | 2018-05-20 00:03 | External Medical Summary | Continuity of Care Document ---
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 Provider: Health PA, first preg, third 8 700 Krystal PO Box [id number] weeks Medical Cash, 700 1522, gestation of [facility] [place], , [facility] Dr GOMES, 120, Memo 120, [id number], Kristofer Miner, [place], [place], tel:+ [phone]. , [place]. tel: tel: [phone] Loretta Knappntr for January-3 Alfredo Referring In Womens suprvsn of normal 1-201 Natividad. Provider: Health PA, first preg, third 8 700 Krystal PO Box [email or web address] weeks Medical Cash, 700 1522, gestation of [facility] [place], , [facility] Dr GOMES, 120, Memo 120, [id number], Kristofer Miner, [place], [place], tel: [phone]. , [place]. tel: tel: [phone] Loretta Miner Encntr for January-0 Alfredo Referring In Womens suprvsn of normal 3-201 Natividad. Provider: Health PA, first preg, 8 700 Krystal PO Box second Medical Cash, 700 1522, [email or web address] weeks [facility] [place], gestation of , [facility] Dr GOMES, 120, Memo 120, [id number], Kristofer Miner, [place] GOMES, tel: [phone]. , [place]. tel: tel: [phone] Loretta Knappntr for Nov- Alfredo Referring In Womens suprvsn of normal 9-201 Natividad. Provider: Health SHERI, first preg, 8 700 Krystal PO Box second Medical Cash, 700 1522, [id number] [facility], [facility] of , [facility] Dr GOMES, 120, Memo 120, [id number], Kristofer Miner, [place], [place], tel:+ [phone]. , [place]. tel: tel: [phone] Loretta Knappntr for Mar-2 Alfredo Referring In Womens Ultrasound suprvsn of normal 9-201 Natividad. Provider: Andre WADE, first preg, 8 700 Krystal PO Box second Medical Cash, 700 1522, [email or web address] [facility], [facility] of , [facility] Dr GOMES, 120, Memo 120, , Kristofer Miner, [place] GOMES, tel:+ [phone]. , [place]. tel: tel: [phone] Loretta Miner Encntr for Mar-0 Alfredo Referring In Womens suprvsn of normal 1-201 Natividad. Provider: Andre WADE, first preg, 8 700 Krystal PO Box second Medical Cash, 700 1522, [id number] weeks [facility], gestation of , [facility] Dr GOMES, 120, Memo 120, , Kristofer Miner, [place], [place], tel:+ [phone]. , [place]. tel: tel: [phone] Loretta Knappntr for Pranav-2 Sobbing Referring In Womens suprvsn of normal 5-201 Aly. Provider: Andre WADE, first preg, first 8 700 Krystal PO Box trimester Medical Cash, 700 1522, [facility], [facility] [place] Dr GOMES, [address], , 120, Miner, MIRE[place] Miner, tel:+ MIREYA, [phone]. [address], tel:+ [place]. [phone] tel: [phone] Loretta Knappntr screen for Pranav-2 Alfredo Referring In Womens infections w sexl 5-201 Natividad. Provider: Health SHERI, mode of 8 700 Krystal PO Box transmissEncounte Medical Cash, 700 1522, r for screening [facility] [place], for oth , [facility] Dr GOMES, infec/parastc 120, Memo 120, [id number], diseasesEncntr Kristofer Miner, for suprvsn of [place], tel: normal first [phone]. preg, first , [place]. 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 Provider: Andre WADE, (routine) w/o abn 7 700 Krystal PO Box findingsPap Smear [facility] Cash, 700 1522, Screening, [facility], CervixPap Smear , [facility] Dr GOMES, Screening, 120, Memo 120, [id number], CervixEncounter rKistofer Miner, for surveillance [place], [place], tel: of contraceptive [phone]. pills , [place]. tel: tel: [phone] Family History Family Member Diagnosis Age At [...] Unknown Payers Payer name Insurance type Covered republican ID Authorization(s) [facility] [facility] [id number] Social History Type Description Quantity Date Captured Alcohol Use Details Caffeine Use Details Unknown Tobacco Use Status Unknown Smoking Status Never smoker Vital Signs Date / Height Weight BMI Pulse Blood Temperature Respiratory Body Head BMI Time: Rate Pressure Rate Surface Circumference percentile Area 144.80 20.6 / lbs 6 mm[Hg] 4:06 kg/m PM eter (2) Chief Complaint And Reason For Visit Unknown Chief Complaint And Reason For Visit Reason For Referral Reason For Referral Unknown Plan Of Care Date Type Action Status Appointment Agatha Sánchez BOOKED Appointment Agatha Sánchez BOOKED Future Order: Radiology Order Complete OB Ultrasound > 14 Weeks Ordered ([id number]) Date Type Problem Goal Intervention Status Start [...]
--- OUTSIDE RECORDS SUMMARY | 2018-05-20 00:03 | External Medical Summary | Continuity of Care Document ---
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 Provider: Andre WADE, first preg, third 8 700 Krystal PO Box [email or web address] weeks [facility] Cash, 700 1522, gestation of [facility], [facility] Dr GOMES, 120, [facility] 120, [id number], Kristofer Miner, [place]RE[place] GOMES, tel: [phone]. , [place]. tel: tel: [phone] Loretta Miner Encntr for Mar-0 Robert Referring In Womens suprvsn of normal 5-201 Filipe. 700 Provider: Andre WADE, first preg, third 8 Medical Krystal PO Box weeks [place] Cash, 700 1522, gestation of Mem[facility], 120, [place] Kristofer Vanegas, [facility] 120, [id number], Kristofer GOMES, [id number] [place], tel: , . [phone]. tel: tel: [phone] Loretta Miner Encntr for Mar-0 Alfredo Referring In Womens Ultrasound suprvsn of normal 5-201 Natividad. Provider: Andre WADE, first preg, third 8 700 Krystal PO Box weeks [facility] Cash, 700 1522, gestation of [facility], , [facility] Dr GOMES, 120, Memo 120, [id number], Kristofer Miner, [place], [place], tel: [phone]. , [place]. tel: tel: [phone] Loretta Miner Encntr for Vinny-1 Alfredo Referring In Womens suprvsn of normal 4-201 Naitvidad. Provider: Andre WADE, first preg, third 8 700 Krystal PO Box [id number] weeks Medical Cash, 700 1522, gestation of [facility], , [facility] Dr GOMES, 120, Memo 120, [id number], Kristofer Miner, [place], [place], tel: [phone]. , [place]. tel: tel: [phone] Loretta Miner Encntr for May-3 Alfredo Referring In Womens suprvsn of normal 1-201 Natividad. Provider: Andre WADE, first preg, third 8 700 Krystal PO Box [email or web address] weeks Medical Cash, 700 1522, gestation of [facility], , [facility] Dr GOMES, 120, Memo 120, [id number], Kristofer Miner, [place], [place], tel: [phone]. , [place]. tel: tel: [phone] Loretta Miner Encntr for May-0 Alfredo Referring In Womens suprvsn of normal 3-201 Natividad. Provider: Andre WADE, first preg, 8 700 Krystal PO Box second Medical Cash, 700 1522, [email or web address] weeks [facility], gestation of Dr, [facility] Dr GOMES, 120, Memo 120, [id number], Kristofer Miner, [place], [place], tel: [phone]. , [place]. tel: tel: [phone] Loretta Miner Encntr for Mar-2 Alfredo Referring In Womens suprvsn of normal 9-201 Natividad. Provider: Andre WADE, first preg, 8 700 Krystal PO Box second Medical Cash, 700 1522, [id number] [facility] , [facility] Dr GOMES, 120, Memo 120, , Kristofer Miner, [place]RE[place] GOMES, tel:+ [phone]. , [place]. tel: tel: [phone] Loretta Knappntr for Mar-2 Alfredo Referring In Womens Ultrasound suprvsn of normal 9-201 Natividad. Provider: Andre WADE, first preg, 8 700 Krystal PO Box second Medical Cash, 700 1522, [facility] , [facility] Dr GOMES, 120, Memo 120, , Kristofer Miner, [place] GOMES, tel:+ [phone]. , [place]. tel: tel: [phone] Loretta Knappntr for Mar-0 Alfredo Referring In Womens suprvsn of normal 1-201 Natividad. Provider: Andre WADE, first preg, 8 700 Krystal PO Box second Medical Cash, 700 1522, [email or web address] weeks [facility], [facility] of , [facility] Dr GOMES, 120, Memo 120, [id number], Kristofer Miner, [place] GOMES, tel:+ [phone]. , [place]. tel: tel: [phone] Loretta Knappntr for Pranav-2 Sobbing Referring In Womens suprvsn of normal 5-201 Aly. Provider: Andre WADE, first preg, first 8 700 Krystal PO Box trimester Medical Cash, 700 1522, [facility], [facility] [place] Dr GOMES, [address], , Kristofer Kim, MIRE[place] Miner, tel:+ MI[place]YA, [phone]. [phone], tel:+ [place]. [phone] tel: [phone] Loretta Gillette screen for Pranav-2 Alfredo Referring In Womens infections w sexl 5-201 Natividad. Provider: Andre WADE, mode of 8 700 Krystal PO Box transmissEncounte Medical Cash, 700 1522, r for screening [facility], for oth , [facility] Dr GOMES, infec/parastc 120, Memo 120, [id number], diseasesEncntr Kristofer Miner, for suprvsn of [place], [place], tel:2 normal first [phone]. preg, first , [place]. 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 Provider: Andre WADE, (routine) w/o abn 7 700 Krystal PO Box findingsPap Smear Medical Cash, 700 1522, Screening, [facility], CervixPap Smear , [facility] Dr GOMES, Screening, 120, Memo 120, , CervixEncounter Kristofer [place], for surveillance [place], [place], tel:2 of contraceptive [phone]. pills , [place]. tel: tel: [phone] Family History Family Member Diagnosis Age At [...] Record Payers Payer name Insurance type Covered democrat ID Authorization(s) [facility] [id number] [facility] [id number] Social History Type Description Quantity Date Captured [...] Agatha Sánchez BOOKED Future Order: Radiology Order Ultrasound OB Follow-up ([id number]) Ordered Future Order: Radiology Order Complete OB Ultrasound > 14 Weeks Ordered ([id number]) Date Type Problem Goal Intervention Status Start [...]
--- OUTSIDE RECORDS SUMMARY | 2018-05-20 00:03 | External Medical Summary | Continuity of Care Document ---
:1995 Author Organization [facility] Address [address] [place], [place] [id number] Phone Allergies, Adverse Reactions, Alerts Substance Reaction Severity Status No Known Drug Allergies Unknown Active Medications Medication Instructions Dosage Effective Dates Status Comments (start - stop) 28 mg take 1 tablet by Not Available - Active iron-800 mcg oral route every tablet day Problems Condition Effective Dates (start - stop) Clinical Status Encntr for suprvsn of normal first - preg, first trimester Encntr screen for infections w sexl - mode of transmiss Encounter for screening for oth - infec/parastc diseases Encntr for suprvsn of normal first - preg, first trimester Encounter For Other Specified - Screening 10 weeks gestation of - 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 Provider: Andre WADE, preg, first [address] trimester [address], [address], [facility] [address], [address], [id number], 120, [place], MIREYA Miner, tel:[phone] MIREYA, [id number]. [id number], tel: [phone]. [phone] tel: [phone] [facility] Encntjamir screen for Alfredo Referring In Womens infections w sexl 5-201 Natividad. Provider: Andre WADE, mode of [address] transmissEncounter [facility] [address], [address], for screening for [facility], oth infec/parastc , [facility] [address], diseasesEncntr for 120, [address], [id number], suprvsn of normal Kristofer Miner, first preg, first MIREYA GOMES, tel: trimesterEncounter [phone]. For Other Specified , [place]. tel: tel: [phone] [email or web address] weeks [id number] gestation of [facility] [place] for booster pump oiler exam Cash Referring In Womens (general) (routine) 3-201 Krystal. Provider: Andre WADE, w/o abn findingsPap 7 [address] [facility] [address], [facility] [place], Screening, , [facility] [address], CervixEncounter for 120, [address], , surveillance of Kristofer Miner, contraceptive pills MIREYA GOMES, tel: [phone]. , [place]. tel: tel: [phone] Family History Family Member Diagnosis Age At [...] name Insurance type Covered democrat ID Authorization(s) S[employer] RICHARD [id number] Social History Type Description Quantity Date Captured [...] Status Appointment Agatha Sánchez BOOKED Future Order: Lab Order Pap Smear With HPV Reflex If ASCUS Ordered ([id number]), Collected on: Date Type Problem Goal Intervention Status Start [...]
[2018-05-20 00:26] VITALS: BMI 22.6
[2018-05-20] MEDS ORDERED: CALCIUM CARBONATE Chewable 500mg TABLET PO PRN ×2 (00:27→06:49)
[2018-05-20] MEDS ORDERED: METHYLERGONOVINE 0.2 MG/ML INJECTION IM PRN ×2 (00:27→11:30)
[2018-05-20] MEDS ORDERED: ACETAMINOPHEN 500 MG TABLET PO PRN ×2 (00:27→06:49)
[2018-05-20] MEDS ORDERED: CARBOPROST 250 MCG/ML INJECTION IM PRN (00:27)
[2018-05-20] MEDS ORDERED: LIDOCAINE 1% (10mg/ml) 2mL INJ PF SDV ID PRN (00:27)
[2018-05-20] MEDS ORDERED: MAG-AL + SIM ORAL LIQUID 30ml PO PRN ×2 (00:27→06:49)
[2018-05-20] MEDS ORDERED: D5LR 1,000 ML IV SCH (00:30)
[2018-05-20] MEDS: SALINE FLUSH 10ml SYRINGE IV PRN ×3 (00:42→22:19)
[2018-05-20] MEDS: LR 1,000 ML IV PRN ×3 (00:44→11:52)
[2018-05-20] MEDS ORDERED: MORPHINE SULFATE 2mg INJECTION IVP ONE (05:32)
[2018-05-20] MEDS ORDERED: NS FLUSH BAG 500ml IV PRN (06:14)
[2018-05-20] MEDS ORDERED: DiphenhydrAMINE 25 MG CAPSULE PO PRN (06:49)
[2018-05-20] MEDS ORDERED: OXYTOCIN DRIP 30 UNIT/500 ML ML IV PRN (06:49)
[2018-05-20] MEDS ORDERED: HYDROCORTISONE 2.5% CREAM 30gm RECTALLY PRN (06:49)
--- NOTE | 2018-05-20 06:49 | OB/GYN Procedure Note ---
Delivery date: 05/20/18 Induction method: none Delivery augmentation: rupture of membranes Delivery monitor: external FHT, external uterine Route of delivery: Laceration description: Vaginal - 2nd Degree Delivery repair: vicryl, chromic Anesthesia type: None Disposition: floor Complications: PPH EBL 1200CC from extensive second degree vaginal lacerations - [place] Baby 1 gender: Female presentation: Vertex position: Vertex-by exam Placenta delivery description: Spontaneous cord vessel description: 3 Vessels at 1 minute: 8 at 5 minutes: 9
[2018-05-20] MEDS ORDERED: OXYTOCIN DRIP 30 UNIT/500 ML ML IV SCH (07:00)
[2018-05-20] MEDS: IBUPROFEN 800 MG TABLET PO PRN ×2 (07:56→22:20)
[2018-05-20] MEDS: DOCUSATE CALCIUM 240 MG CAPSULE PO SCH ×2 (07:57→08:19)
[2018-05-20] MEDS ORDERED: TRANEXAMIC ACID 1,000 MG/10 ML VIAL IV ONE (08:25)
[2018-05-20] MEDS ORDERED: PRENATAL VITAMIN TABLET PO SCH (09:00)
[2018-05-20] MEDS: HYDROCODONE/APAP 5mg/325mg TABLET PO PRN ×2 (09:15→22:19)
--- NOTE | 2018-05-20 11:08 | Labor and Delivery Note ---
DATE 05/20/2018 There was a spontaneous vaginal delivery of a live female , named Vanessa, with Apgars of 7/9/9, in the cephalic presentation, without anesthesia. There was a nuchal cord x1 that was reduced. No meconium was noted. Spontaneous delivery of the placenta. There was an extensive midline second-degree vaginal laceration along with a right sidewall vaginal laceration second-degree, a second-degree labial on the right and bilateral second-degree periurethrals that were repaired. EBL was 1200 mL secondary to extensive laceration. There was no uterine atony. Agatha presented to the hospital after her contractions began at 3:00 p.m. at home. She presented at approximately sometime around 11:00 p.m. and was noted to have regular contractions. At this time she was noted to be 100%, 0 station and 5 cm dilated. She was intact. Group B strep was negative and amniotomy was performed noting clear fluid. She then continued to progress at a decent rate and was noted to be complete and pushing with the desire to push at approximately 4:30 a.m. She then pushed and did well and delivered by 5:10 a.m. [facility]
[2018-05-20] MEDS ORDERED: LR 500 ML IV SCH (11:30)
--- NOTE | 2018-05-20 17:05 | Labor and Delivery Note ---
- Labor and Delivery Labor and Delivery: Patient's bleeding has improved and she's been up to void. AVSS Will recheck H&H in a.m., cont limited activity.
[2018-05-21 05:17] VITALS: BP 99/66; PULSE 71; RESP 20; TEMP 98; O2SAT 98
--- NOTE | 2018-05-21 07:52 | Progress Note ---
OB PP Progress Note Free Text - Date Date: 05/21/18 - Progress Note Progress Note: PPD1 vss af hgb drop from yesterday noted no c/o this am cont routine care path q&a-krb
[2018-05-21] MEDS: IBUPROFEN 800 MG TABLET PO PRN (08:20)
[2018-05-21] MEDS: DOCUSATE CALCIUM 240 MG CAPSULE PO SCH (12:23)
== END 2018-05-21 15:53 | disposition home or self-care (01) | DRG 774 ==
LOC: OBOBS 23:58 → MC 05-20
PROVIDERS: ADMIT Obstetrics & Gynecology; ATTEND Obstetrics & Gynecology